=== PATIENT | female | born 2000 | race Caucasian/White ===

== ENCOUNTER 2022-10-28 18:25 | Emergency (ER) | payer OTHER ==
[2022-10-28 18:44] VITALS: BP 126/82; PULSE 86; RESP 18; TEMP 98.1; BMI 30.2
== END 2022-10-28 19:00 | disposition home or self-care (01) ==
LOC: FER 18:25
DX: H10.32 Unspecified acute conjunctivitis, left eye (principal)
CPT/HCPCS: 99283-25